=== PATIENT | female | born 1970 | race African-American/Black ===

== ENCOUNTER 2023-08-04 14:22 | Outpatient (CLI) | payer OTHER, SELFPAY ==
[2023-08-04 14:57] LABS: Basophils Percent Auto 0.5 % (0.2-1.2); Eosinophils Absolute Auto 0.3 K/mm3 (0-0.3); Eosinophils Percent Auto 4.8 % (0-4.4); Hematocrit 37.6 % (37.0-47.0); Immature Granulocyte Absolute 0.02 K/mm3 (0.00-0.031); Immature Granulocyte Percent A 0.4 % (0-0.5); Lymphocytes Absolute Auto 1.92 K/mm3 (0.9-3.2); Lymphocytes Percent Auto 34.1 % (18.3-44.2); Mean Corpuscular HGB Conc 31.9 g/dl (32-36); Mean Corpuscular Hemoglobin 27.8 pg (26-34); Mean Corpuscular Volume 87.2 fl (80-100); Mean Platelet Volume 9.1 fl (7.4-10.4); Monocytes Absolute Auto 0.5 K/mm3 (0.1-0.6); Monocytes Percent Auto 9.2 % (2.6-8.5); Neutrophils Absolute Auto 2.9 K/mm3 (1.3-6.7); Platelet Count Result 252 k/mm3 (150-375); Red Blood Count 4.31 M/mm3 (4.2-5.4); Red Cell Distribution Width 13.6 % (11.5-14.5); White Blood Count 5.6 K/mm3 (4.5-10.0)
[2023-08-04 15:10] LABS: Alanine Aminotransferase 18 U/L (6-35); Albumin Level 4.4 g/dL (3.5-5.1); Alkaline Phosphatase 68 U/L (38-126); Anion Gap 3 mmol/L (4-12); Aspartate Amino Transferase 21 U/L (14-36); Bilirubin,Total 0.4 mg/dL (0.2-1.3); Blood Urea Nitrogen 10 mg/dL (7-17); Calcium 9.4 mg/dL (8.4-10.2); Carbon Dioxide 28 mmol/L (22-30); Chloride 104 mmol/L (98-107); Estimated Glomerular Filt Rate > 60; Glucose 86 mg/dL (65-110); Potassium 3.6 mmol/L (3.4-5.0); Sodium 135 mmol/L (137-145)
== END 2023-08-04 14:23 | disposition home or self-care (01) ==
LOC: ANHSURGERY 14:28
PROVIDERS: Visit Provider Student in an Organized Health Care Education/Training Program
DX: Z01.818 Encounter for other preprocedural examination (principal); N85.2 Hypertrophy of uterus
CPT/HCPCS: 36415; 80053; 85025; 86850; 86900; 86901

== ENCOUNTER 2023-08-06 11:19 | Inpatient (IN) | payer OTHER, SELFPAY ==
[2023-07-28 14:27] VITALS: BMI 33.6
--- NOTE | 2023-07-28 14:32 | PC.NURSE ---
Report to the Outpatient Waiting Room, entrance under the green pavilion located off [facility], at time 10:00 on date 08/06/23. Planned Procedure Time: 12:00. Time changes happen often and if your time is changed the preop area will call you the afternoon before. - You and your visitor will be asked to self-screen and do not enter if you have any COVID symptoms. - A mask is optional within the hospital at this time. Patients may have clear liquids (water, carbonated beverages, clear teas, apple juice) until 3 hours prior to surgery (9:00) with a maximum of 20 ounces. - No food from midnight until time of surgery Take the following medications with a SIP of water the morning of surgery: NONE DO NOT STOP ANY OF YOUR OTHER PRESCRIPTION MEDICATIONS PRIOR TO SURGERY ?EXCEPT THE FOLLOWING Medications to discontinue per physician: ADVIL Date to take last dose: PER DR. DORMAN Please no make-up, nail jordanian, hairspray, perfume, deodorant, or body powder the day of surgery. No jewelry (including any body piercings) or valuables the day of surgery, leave them at home. Please take a shower or bath the night before, or the morning of, surgery with an antibacterial soap. Wear comfortable, loose fitting clothing. - Jewelry must be removed prior to entering the operating room. Rings and piercings that are not removed may be cut off. - The hospital will not accept responsibility for valuables. - Please leave all valuables, including medications, at home the day of surgery. If you are going home after surgery, a licensed steam train driver must drive you home. - NO public transportation without another adult if you receive anesthesia. - We recommend that an adult stay with you for 24 hours following discharge. - We also recommend that you do not drive, make important decision, drink alcoholic beverages, or take any drugs that were not prescribed by your health care provider for at least 24 hours after your discharge time. Follow any additional instructions given to you from your surgeon. If you or anyone in your household have experienced Covid symptoms in the past week, please notify your surgeon or the nurse liaison at the phone number below for possible testing. Telephone instructions given to PT Stephany CONRAD and asked if any additional questions and then verbalized understanding. Patient advised to call surgeon office or pre surgery nurse liaison [phone] if any additional questions.
--- NOTE | 2023-08-05 16:08 | PM.IMHP ---
H&P: HPI History of Present Illness Date/Time: 08/05/23 16:08 Chief Complaint: abnormal uterine bleeding uterine fibroid pelvic pain Narrative: ?52-year-old female who presents for management of abnormal uterine bleeding and pelvic pain.? Patient was recently seen for the previously mentioned symptoms.? Pelvic imaging was ordered to rule out structural causes.? Pelvic ultrasound revealed enlarged uterus with multiple uterine fibroids. Pt desires definitive management via hysterectomy Review of Systems Cardiovascular: Cardiovascular: Denies chest pain, Denies leg edema, Denies palpitations, Denies dyspnea and Denies dyspnea on exertion Respiratory: Respiratory: Denies cough, Denies dyspnea and Denies dyspnea on exertion Gastrointestinal: Gastrointestinal: Denies abdominal pain, Denies constipation, Denies diarrhea, Denies nausea and Denies vomiting Genitourinary: Genitourinary: Denies hematuria, Denies urinary frequency, Denies dysuria, Denies pelvic pain, Denies urinary incontinence and Denies vaginal discharge Neurologic: Reports system reviewed and no additional complaints, except as documented Psychiatric: Psychiatric: Reports no additional psychiatric complaints Endocrine: Endocrine: Denies palpitations PMFSH Past Medical History Medical History Screening mammogram for breast cancer Surgical History Surgical History H/O knee surgery History of delivery x 3 Social History Social History Smoking status: Never smoker Alcohol intake: current Drinks per week: 7 Substance use: never Substance use type: does not use Do You Feel Safe in your Home?: Yes Lack of Transportation: No Lack of Food: Never True Current Housing: I Have Housing Concerned About Future Housing: No Difficulty Paying Gas/Electric Bills: No Difficulty Paying for Meds: No Currently Unemployed: No Education: High School Diploma/GED Living arrangements: alone Occupation/Education: occupation Gender identity (if verbalized by the patient): Female Spiritual care concerns: No Meds Home Medications and Allergies Home Medications Medication Instructions Recorded Confirmed Type ibuprofen 200 mg-phenylephrine HCl 1 tablet PO Q4-6H PRN Pain 07/28/23 07/28/23 History 10 mg tablet (Advil Sinus Congestion-Pain) oxymetazoline 0.05 % nasal spray 2 spray intranasal Q12H PRN Sinus 07/28/23 07/28/23 History (Afrin (oxymetazoline)) Symptoms Allergies Allergy/AdvReac Type Severity Reaction Status Date / Time No Known Allergies Allergy Verified 07/28/23 14:26 Exam Const: General: no acute distress Eyes: EOM: EOMs intact bilaterally Neck: Neck: supple Thyroid: thyroid normal Chest: Breast/axilla inspection: normal inspection of the breasts Breast/axilla palpation: normal palpation of the breasts, normal palpation of the axillae and no axillary lymphadenopathy Resp: Effort & Inspection: normal respiratory effort Auscultation: clear to auscultation bilaterally Cardio: Rate: regular rate Rhythm: regular rhythm GI: Inspection: non-distended GI Palp: Yes Soft to palpation, No Tenderness to palpation present (GI) and No Guarding due to palpation present (GI) Auscultation: normal bowel sounds : General: No bladder normal to palpation External Female Exam: normal external appearance Speculum Exam - Vagina: normal vaginal discharge and No vaginal bleeding Speculum Exam - Cervix: nontender Bimanual exam- vagina & uterus: No bladder normal to palpation and No Cervical tenderness present OB/external & speculum: No vaginal bleeding Skin: General skin exam: normal color and no rashes or lesions noted Neuro: Cognition (Neuro): normal cognition Speech: normal speech Extrem: General: normal to inspection and no edema Psych
[2023-08-06] VITALS (10 sets, daily range): BP systolic 106–171; BP diastolic 63–95; PULSE 72–86; RESP 12–17; TEMP 36.2–36.9; O2SAT 94–100
[2023-08-06] MEDS: LACTATED RINGERS 1,000 ML 30 ML IV CONT ×2 (11:26→14:57)
--- NOTE | 2023-08-06 11:41 | WPDHPUPDATE1 ---
History and Physical Update Update Date/Time: 08/06/23 11:41 52 yo female who presents for CAMILA/BS History and Physical has been reviewed, including an updated exam of the patient. There are NO changes in the patient's condition. Risks, benefits, and alternatives have been discussed and questions answered. Patient agrees to proceed with procedure.
[2023-08-06] MEDS: ACETAMINOPHEN 500 MG TABLET 1000 MG PO (11:50)
[2023-08-06] MEDS: KETOROLAC 15 MG/ML VIAL (*BKC) IV PUSH (11:53)
--- NOTE | 2023-08-06 11:59 | P.PNAN_ITS ---
Anes - Initial Pre Proc Eval Procedure: Operation Date: 08/06/23 12:00 Proposed Procedures p Total Abdominal Hysterectomy with Bilateral Salpingectomy - Osman Preston MD Date/Time: 08/06/23 11:59 Surgeon: Osman Preston MD Pre Op Diagnosis: Uterine Hypertrophy Patient Data Age: 52 Gender: F Height: 1.6 m Weight: 93.9 kg Last Vital Signs Temp 97.5 F L 08/06/23 11:49 Pulse 81 08/06/23 11:49 Resp 16 08/06/23 11:49 BP 171/95 H 08/06/23 11:49 Pulse Ox 99 08/06/23 11:49 O2 Del Method Room Air 08/06/23 11:49 Allergies Allergy/AdvReac Type Severity Reaction Status Date / Time No Known Allergies Allergy Verified 08/06/23 10:22 Home Medications Medication Instructions Recorded Confirmed Type ibuprofen 200 mg-phenylephrine HCl 1 tablet PO Q4-6H PRN Pain 07/28/23 08/06/23 History 10 mg tablet (Advil Sinus Congestion-Pain) oxymetazoline 0.05 % nasal spray 2 spray intranasal Q12H PRN Sinus 07/28/23 08/06/23 History (Afrin (oxymetazoline)) Symptoms Patient hx anesthesia problems: none Family hx anesthesia problems: none Results Review: All pre-operative results and documents have been reviewed as part of the pre- operative evaluation. [facility] Past Medical History Medical History Screening mammogram for breast cancer Surgical History Surgical History H/O knee surgery History of delivery x 3 Social History Social History Smoking status: Never smoker Alcohol intake: current Drinks per week: 7 Substance use: never Substance use type: does not use Do You Feel Safe in your Home?: Yes Lack of Transportation: No Lack of Food: Never True Current Housing: I Have Housing Concerned About Future Housing: No Difficulty Paying Gas/Electric Bills: No Difficulty Paying for Meds: No Currently Unemployed: No Education: High School Diploma/GED Living arrangements: alone Occupation/Education: occupation Gender identity (if verbalized by the patient): Female Spiritual care concerns: No Anes - Eval Final PreProcedure Day of Procedure 08/06/23 11:59 Patient weight: obese Heart: regular rate and rhythm Lungs: clear to auscultation Airway: Mallampati scale class II Neurological: alert and oriented Last oral intake: >/= 8 hours ASA classification: II Emergent: no Anesthetic plan: proceed Anesthesia type and monitoring: general ETT and standard monitoring Results Review: All pre-operative results and documents have been reviewed as part of the pre- operative evaluation. Informed Consent: The patient's anesthetic plan and its attendant risks and benefits were discussed with the patient/family/POA. Questions were solicited and answers provided to the satisfaction of the patient/family/POA.
[2023-08-06] MEDS: ceFAZolin 2 GM/D5W 50 ML 2 GM/50 ML BAG IVPB (12:06)
--- NOTE | 2023-08-06 14:38 | W.PM.PROC2 ---
Procedure Note - Detailed Date of Procedure 08/06/23 Pre-op Diagnosis uterine fibroid abnormal uterine bleeding pelvic pain Post-op Diagnosis Same Procedure Performed Abdominal supracervical hysterectomy with bilateral salpingectomy Surgeon Osman Preston MD Anesthesia General Indications pelvic pain uterine fibroids abnormal uterine bleeding Findings Enlarged uterus, multiple uterine fibroids, normal appearing fallopian tubes and ovaries bilaterally bladder adherent to the lower uterine segment due to previous c-sections. Description of Procedure After informed consent was confirmed the patient was taken to the operating room where general anesthesia was obtained without difficulty. She was prepped and draped in the normal sterile fashion in the dorsal lithotomy position in padded Tee stirrups with attention paid to supporting the lower back and lower extremities.? Position was adjusted for appropriate support. A transurethral Whalen catheter was placed. A midline incision was made from the pubic symphysis extending cephalad to 3 cm above the umbilicus.? The subcutaneous layer and fascia were incised and the abdominal cavity entered without incident.?The below operative findings were noted. The Bookwalter retractor was set up in standard fashion, with attention to avoid the psoas muscles bilaterally.? The bowel was packed into the upper abdomen with moist laparotomy sponges.? Bilateral fallopian tubes were identified and followed out to the fimbriae. The fallopian tubes were transection along the inferior mesosalpinx to the uterine body using the Ligasure device. The bilateral round ligaments were identified.? The right round ligament was divided and the para-rectal space developed. The right ovary was and the suspensory ligament of the ovary as well as its vessels were ligated with the Ligasure device. Similar procedure was performed on the left side of the uterus. Hemostasis was confirmed.? The bladder was noted to be adherent to the lower uterine segment due to history of sections. Gentle dissection was performed and the bladder was taken down sharply.?Visualization of the deep pelvis was limited to due the size of the uterus and multiple fibroids obstructed normal anatomy. Decision was made to perform myomectomy to help restore normal anatomy and better visualization. A linear incisoin was made vertically along the uterine serosa using Bovie cautery. The subserosal fibroid was identified. The fibroid was bluntly dissected from the uterine body. This procedure was performed 4 separate times to remove 4 individual fibroids from the uterine body. The uterine incision was closed with 0-vicryl in a running fashion to secure hemostasis in the surgical field. After better visualization of the deep pelvis was obtained, the right uterine artery was ligated using the Ligasure device.? A similar procedure was performed on the contralateral side.? Given the enlarged uterus and multiple fibroid, the cervix had been elongated. Due to adhesive disease from the bladder and limited access to the deep pelvis, decision was made to perform a supracervical hysterectomy. The cervix was clamped at the level of the isthmus. The uterus was amputated from the cervical stump. The cervical stump was cauterized with Bovie cautery. Good hemostasis was observed, Hemaderm powder was placed on the surgical field.? The abdomen and pelvis were copiously irrigated and found to be hemostatic. All sponges and retractor instruments were removed from the abdomen. ? We then proceeded with closure.? The fascia was closed with a # 0 looped PDS in a running mass-closure fashion.? The subcutaneous layer was irrigated and made hemostatic as needed with the Bovie.? The deep dermal layer was closed with interrupted 3-0 Vicryl and the skin closed with jah. The patient tolerated the procedure well. Sponge, needle and instrument counts were correct x 2 and the patient was taken t
--- NOTE | 2023-08-06 16:20 | PC.NURSE ---
This patient, Domitila Cortes, was received from PACU on 08/06/23 at 1620. Patient/family oriented to unit policies and routines.
[2023-08-06] MEDS: LACTATED RINGERS 1,000 ML 125 ML IV CONT (16:53)
[2023-08-06] MEDS: SENNA/DOCUSATE SODIUM TABLET 2 TAB PO (20:53)
[2023-08-06] MEDS: SIMETHICONE 80 MG TAB.CHEW PO (20:54)
[2023-08-06] MEDS: KETOROLAC 30 MG/ML VIAL (*BKC) IV PUSH (20:54)
[2023-08-07 00:31] VITALS: BP 121/69; PULSE 91; RESP 16; TEMP 36.8; O2SAT 98
[2023-08-07] MEDS: SIMETHICONE 80 MG TAB.CHEW PO ×3 (00:41→17:15)
[2023-08-07] MEDS: KETOROLAC 30 MG/ML VIAL (*BKC) IV PUSH (05:22)
[2023-08-07 06:10] LABS: Basophils Percent Auto 0.1 % (0.2-1.2); Hemoglobin 10.2 g/dL (12.0-15.0); Immature Granulocyte Absolute 0.04 K/mm3 (0.00-0.031); Immature Granulocyte Percent A 0.3 % (0-0.5); Lymphocytes Absolute Auto 1.34 K/mm3 (0.9-3.2); Lymphocytes Percent Auto 10.8 % (18.3-44.2); Mean Corpuscular HGB Conc 31.9 g/dl (32-36); Mean Corpuscular Hemoglobin 27.9 pg (26-34); Mean Corpuscular Volume 87.7 fl (80-100); Mean Platelet Volume 10.2 fl (7.4-10.4); Neutrophils Percent Auto 80.8 % (45.5-73.1); Platelet Count Result 231 k/mm3 (150-375); Red Blood Count 3.65 M/mm3 (4.2-5.4); Red Cell Distribution Width 13.7 % (11.5-14.5); White Blood Count 12.4 K/mm3 (4.5-10.0)
[2023-08-07 06:20] LABS: Anion Gap 5 mmol/L (4-12); Blood Urea Nitrogen 8 mg/dL (7-17); Calcium 8.8 mg/dL (8.4-10.2); Carbon Dioxide 26 mmol/L (22-30); Chloride 103 mmol/L (98-107); Estimated CRCL calculation 80 ml/min; Estimated Glomerular Filt Rate > 60; Glucose 115 mg/dL (65-110); Potassium 3.3 mmol/L (3.4-5.0); Sodium 134 mmol/L (137-145)
--- NOTE | 2023-08-07 07:25 | WPDANESPN ---
Anes - Prog Note Post-Op Date/Time: 08/07/23 07:25 Cardiovascular status: normal Respiratory status: normal Airway patency: baseline Mental status: baseline Post-Op hydration status: normal Vital Signs: Last Vital Signs Temp 98.2 F 08/07/23 00:31 Pulse 91 08/07/23 00:31 Resp 16 08/07/23 00:31 BP 121/69 08/07/23 00:31 Pulse Ox 98 08/07/23 00:31 O2 Del Method Room Air 08/06/23 16:00 O2 Flow Rate 10 08/06/23 15:00 Pain Score (VAS): 0/10 I/O: Intake & Output 08/06/23 08/06/23 08/07/23 15:59 23:59 07:59 Intake Total 0 0 1980 Output Total 1100 1700 Balance 0 -1100 280 Laboratory Tests 08/07/23 05:44 08/07/23 05:44 08/07/23 05:44 WBC 12.4 H RBC 3.65 L Hgb 10.2 L Hct 32.0 L MCV 87.7 MCH 27.9 MCHC 31.9 L RDW 13.7 Plt Count 231 MPV 10.2 Immature Gran % (Auto) 0.3 Neut % (Auto) 80.8 H Lymph % (Auto) 10.8 L [place] % (Auto) 8.0 Eos % (Auto) 0.0 Baso % (Auto) 0.1 L Lymph # (Auto) 1.34 [place] # (Auto) 1.0 H Eos # (Auto) 0.0 Baso # (Auto) 0.0 Abs Immat Gran (auto) 0.04 H Absolute Neuts (auto) 10.0 H Absolute Nucleated RBC 0.000 Nucleated RBC % 0.0 Sodium 134 L Potassium 3.3 L Chloride 103 Carbon Dioxide 26 Anion Gap 5 BUN 8 Creatinine 0.80 Estim Creat Clear Calc 80 Estimated GFR > 60 Glucose 115 H Calcium 8.8 Post-procedural complaints: none Patient Feedback: Patient satisfied with anesthetic care.
--- NOTE | 2023-08-07 08:08 | PM.GYNPNOP ---
STAPLE LASTER - A/P Assessment and plan (1) Uterine fibroid: Code(s): D25.9 - Leiomyoma of uterus, unspecified Status: Acute Plan 52-year-old female postop day 1. From supracervical CAMILA/ BS Patient resting comfortably in bed Midline vertical incision closed with jah. Incision dry and covered with bandage Whalen catheter removed. Normal urine output overnight H&H stable this morning Patient is tolerating p.o. without nausea and vomiting Encouraged ambulation today Will continue to monitor pain control Anticipate discharge home tomorrow morning Postoperative Procedures: Procedures Operation Date: 08/06/23 12:00 Actual Procedure Side Surgeon p supracervical Hysterectomy with Bilateral Salpingectomy Bilateral Osman Preston MD Time Spent With Patient Time: Total time spent is greater than 50% in coordination of care (as documented) at patient's floor/unit and/or counseling patient: Time with patient: less than 15 minutes STAPLE LASTER- PN:Subj Post-Op Subjective Date/time seen: 08/07/23 08:08 Interval history: 52-year-old female postop day 1. From supracervical CAMILA / BS for uterine fibroids. Patient resting comfortably in bed. Patient reports adequate pain control. Patient denies any bleeding. Patient is tolerating p.o. without nausea or vomiting. Whalen catheters removed. Patient is voiding spontaneously. Review of Systems Review of Systems: All systems reviewed & are unremarkable except as noted in HPI and below Exam Const: General: cooperative, comfortable and no acute distress Resp: Effort & Inspection: normal respiratory effort and able to speak in complete sentences Cardio: Rate: regular rate GI: Inspection: incision ( Midline vertical incision closed with jah, incision dry) GI Palp: Yes abdominal tenderness and Yes Soft to palpation Psych: Appearance: grossly normal Mental Status: mental status grossly normal STAPLE LASTER - PN: Obj Data Vital Signs Vital Signs: Vital Signs - 24 hr 08/06/23 11:49 08/06/23 14:33 08/06/23 14:45 Temperature 97.5 F L 97.5 F L Pulse Rate 81 72 73 Respiratory Rate 16 17 12 Blood Pressure 171/95 H 108/63 117/70 Pulse Oximetry 99 100 100 Oxygen Delivery Room Air Simple Face Mask Simple Face Mask Oxygen Flow Rate 10 10 08/06/23 15:00 08/06/23 15:15 08/06/23 15:30 Temperature Pulse Rate 72 73 76 Respiratory Rate 12 12 12 Blood Pressure 117/73 112/70 108/79 Pulse Oximetry 100 98 98 Oxygen Delivery Simple Face Mask Room Air Room Air Oxygen Flow Rate 10 08/06/23 15:45 08/06/23 16:00 08/06/23 16:30 Temperature 97.2 F L Pulse Rate 79 79 82 Respiratory Rate 14 13 16 Blood Pressure 106/73 112/73 108/66 Pulse Oximetry 100 94 94 Oxygen Delivery Room Air Room Air Oxygen Flow Rate 08/06/23 20:52 08/07/23 00:31 Temperature 98.4 F 98.2 F Pulse Rate 86 91 Respiratory Rate 16 16 Blood Pressure 111/74 121/69 Pulse Oximetry 97 98 Oxygen Delivery Oxygen Flow Rate Intake/Output Intake/Output: Intake & Output 08/04/23 08/05/23 08/06/23 08/07/23 23:59 23:59 23:59 23:59 Intake Total 0 1980 Output Total 1100 1700 Balance -1100 280 Meds/Results Medications: Active Medications Generic Name Dose Route Start Last Admin Trade Name Freq PRN Reason Stop Dose Admin Lactated Ringer's 1,000 mls @ 125 mls/hr 08/06/23 16:14 08/07/23 00:46 Lr - Lactated Ringers Iv IV CONT Not Given .Q8H ERMA Ibuprofen 600 mg 08/06/23 16:14 Ibuprofen 600 Mg Tablet PO Q6H PRN Cramping Ketorolac Tromethamine 30 mg 08/06/23 16:14 08/07/23 05:22 Ketorolac 30 Mg/Ml Vial (*Bkc) IV PUSH 08/11/23 16:13 30 mg Q6H PRN Administration Pain Rated 4-6 Ondansetron HCl 4 mg 08/06/23 16:14 Ondansetron Inj 4 Mg/2 Ml Vial IV PUSH Q6H PRN Nausea Oxycodone/Acetaminophen 1 tab 08/06/23 16:14 Oxycodone/Acetaminophen (*Crx) 10-325 Mg Tablet PO Q4H PRN Pain Rated 7-10 Oxymetazolin
[2023-08-07 08:25] VITALS: BP 110/66; PULSE 77; RESP 18; TEMP 36.6; O2SAT 98
[2023-08-07] MEDS: oxyCODONE/ACETAMINOPHEN (*CRX) 10-325 MG TABLET 1 TAB PO ×2 (09:15→22:36)
[2023-08-07] MEDS: IBUPROFEN 600 MG TABLET PO (11:28)
[2023-08-07 20:58] VITALS: BP 96/59; PULSE 70; RESP 18; TEMP 36.6; O2SAT 97
[2023-08-08 09:00] VITALS: BP 129/78; PULSE 81; RESP 16; TEMP 37; O2SAT 96
[2023-08-08] MEDS: IBUPROFEN 600 MG TABLET PO (09:19)
[2023-08-08] MEDS: SIMETHICONE 80 MG TAB.CHEW PO (09:19)
--- NOTE | 2023-08-08 09:41 | PM.DS ---
DS: Admitting Diagnosis Discharge Date 08/08/23 Admitting Diagnosis uterine fibroid pelvic pain abnormal uterine bleeding DS: Discharge Diagnosis Discharge Diagnosis (1) Uterine fibroid: Code(s): D25.9 - Leiomyoma of uterus, unspecified Status: Acute (2) Abnormal uterine bleeding (AUB): Code(s): N93.9 - Abnormal uterine and vaginal bleeding, unspecified Status: Acute DS: Summary Hospital Course Hospital Course: 52 yo female who underwent supracervical CAMILA/BS for uterine fibroids. Patient's posoperative course was uncomplicated. Her pain was well controlled with PO medications. She was ambulating. She had passed gas. She denies any nausea or vomiting. pt is voiding without difficulty. Patient was discharged home on POD #2 Status at Discharge Functional status at discharge: independent ambulation Overall status at discharge: patient is progressing back to baseline Time Spent with Patient Time attestation: Total time spent providing and/or coordinating discharge services: Time spent: Less than 30 minutes Exam Const: General: comfortable and no acute distress Limitations: no limitations Resp: Effort & Inspection: normal respiratory effort Auscultation: clear to auscultation bilaterally Cardio: Rate: regular rate Rhythm: regular rhythm GI: Inspection: non-distended and incision (midline vertical incision. closed with jah) GI Palp: Yes Soft to palpation, Yes Tenderness to palpation present (GI) (milder tenderness to deep palpation) and No Guarding due to palpation present (GI) Auscultation: normal bowel sounds Other: incisions C/D/I covered with dermabond Urinary Catheter: Urinary Catheter: urine clear Skin: General skin exam: normal color Extrem: General: normal to inspection Psych: Mental Status: mental status grossly normal Affect: normal affect DS: Data Data Completed and Pending Pending studies at discharge: Pending at discharge 08/06/23 13:09 Surgical [PTH] Routine Surgical [PTH] Routine Discharge Plan Discharge Discharging Clinician: Osman Preston Patient Disposition: Home, Self-Care Activity: as tolerated and pelvic rest Diet: regular Patient Instructions: Antibiotic Form, Hysterectomy (DC) Stand Alone Forms: General Discharge Information Follow-up/Referrals: Osman Preston MD [Physician] - 1 Week Discharge Medications: New oxycodone-acetaminophen 5-325 mg tablet 1 tablet PO Q6H PRN (Reason: pain) Qty: 28 0RF ibuprofen 600 mg tablet 600 mg PO Q6H PRN (Reason: pain) Qty: 30 0RF Continued oxymetazoline [Afrin (oxymetazoline)] 0.05 % [place],Non-Aerosol 2 spray INTRANASAL Q12H PRN (Reason: Sinus Symptoms) Advil Sinus Congestion-Pain 200-10 mg Tablet 1 tablet PO Q4-6H PRN (Reason: Pain) Date of admission: 08/06/23 11:19 Primary Care Provider: UNKNOWN,DOCTOR Admitting Provider: Osman Preston Attending physician on admission: Osman Preston Condition: Stable
== END 2023-08-08 12:20 | disposition home or self-care (01) | DRG 743 ==
LOC: ANHOB2 16:26
PROVIDERS: Admitting Provider Student in an Organized Health Care Education/Training Program; Visit Provider Student in an Organized Health Care Education/Training Program
PROC: 0UT94ZZ Resection of Uterus, Percutaneous Endoscopic Approach (ICD-10-PCS; principal; 2023-08-06 12:00)
DX: D25.9 Leiomyoma of uterus, unspecified (principal); N93.9 Abnormal uterine and vaginal bleeding, unspecified
CPT/HCPCS: 36415; 80048; 80053; 85025; 86850; 86900; 86901; 88307; A9270; J0330; J0690; J1100; J1170; J1885; J2250; J2371; J2405; J2704; J3010; J7120

== ENCOUNTER 2023-09-18 15:25 | Emergency (ER) | payer OTHER, SELFPAY ==
[2023-09-18] VITALS (7 sets, daily range): BP systolic 116–149; BP diastolic 71–94; PULSE 61–86; RESP 12–20; TEMP 36.6; O2SAT 96–100
--- NOTE | 2023-09-18 17:58 | ED.ABDPAIN ---
HPI - Abdominal Pain General Chief Complaint: Abdominal Pain Stated Complaint: abd pain Time Seen by Provider: 09/18/23 17:57 History of Present Illness HPI narrative: Patient is a 53 year old female with history of prior uterine fibroids, status post hysterectomy on August 06, 2023 here today with abdominal pain and vaginal discharge. Patient states that she has had intermittent abdominal pains since her surgery on August [address] Preston. For the last 2 weeks she has had increased pain and feels as though she is having cramps like she is on her menstrual cycle. She has had some mild clear non pruritic vaginal discharge over the last 2 weeks as well, contacted her [facility] clinic who started her on Flagyl suppositories 4 days ago. She has taken 4 tablets, is due for last dose tomorrow. She notes that today she had increased pain over the left lower side of her incision area. Denies any discharge or open wound that her incision site. She also started noticing some blood tinge in her vaginal discharge which made her concerned and prompted her evaluation here in the department. She denies any fever, chills, nausea, vomiting. She has had normal bowel movements. She otherwise feels generally well. Related Data Home Medications Medication Instructions Recorded Confirmed oxymetazoline 0.05 % nasal spray 2 spray intranasal Q12H PRN Sinus 07/28/23 08/20/23 (Afrin (oxymetazoline)) Symptoms Allergies Allergy/AdvReac Type Severity Reaction Status Date / Time No Known Allergies Allergy Verified 08/20/23 10:03 Review of Systems Review of Systems: All systems reviewed & are unremarkable except as noted in HPI and below PMFSH Past Medical History Medical History (Updated 09/18/23 @ 22:03 by Deann Bob MD) Screening mammogram for breast cancer Surgical History Surgical History (Updated 08/20/23 @ 10:06 by Diana Kaufman CMA) H/O knee surgery History of delivery x 3 History of hysterectomy Social History Social History Smoking status: Never smoker Alcohol intake: current Drinks per week: 7 Substance use: never Substance use type: does not use Do You Feel Safe in your Home?: Yes Lack of Transportation: No Lack of Food: Never True Current Housing: I Have Housing Concerned About Future Housing: No Difficulty Paying Gas/Electric Bills: No Difficulty Paying for Meds: No Currently Unemployed: No Education: High School Diploma/GED Living arrangements: alone Occupation/Education: occupation Gender identity (if verbalized by the patient): Female Spiritual care concerns: No Exam Narrative: GENERAL: Well-appearing, well-nourished, and in no acute distress. HEAD: Normocephalic, atraumatic. EYES: PERRLA and EOMI. ENT: Nares clear. Mucous membranes moist. NECK: Supple. CHEST: Clear to auscultation. No respiratory distress. HEART: Regular rate and rhythm. Normal peripheral pulses. ABDOMEN: Soft, mild left lower quadrant tenderness without rebound or guarding., nondistended. EXTREMITIES: Normal range of motion. No edema. SKIN: Warm, dry, no rash. NEURO: No focal deficits. Alert and oriented x3. PSYCH: Normal mood and affect. Course Course Emergency Course: Chart review performed. Patient here with abdominal pain. Reportedly had hysterectomy in July, has had intermittent pain since that time, pain with urination. Triage vitals normal. CBC grossly normal, electrolytes grossly normal, UA negative for UTI. Patient seen evaluated, nontoxic appearing, reassuring abdominal exam. Low suspicion for something such as a intra-abdominal abscess postoperatively given the fact that she is 6 weeks out from this procedure and she generally feels quite well. Discussed plan for gonorrhea, chlamydia screening as well as a pelvic exam and plan for sending a bacterial vaginosis swab. Patient agreeable to workup and plan. We did
[2023-09-18 18:35] LABS: Basophils Percent Auto 0.3 % (0.2-1.2); Eosinophils Absolute Auto 0.2 K/mm3 (0-0.3); Eosinophils Percent Auto 2.6 % (0-4.4); Hematocrit 36.8 % (37.0-47.0); Hemoglobin 11.7 g/dL (12.0-15.0); Immature Granulocyte Absolute 0.02 K/mm3 (0.00-0.031); Immature Granulocyte Percent A 0.3 % (0-0.5); Lymphocytes Absolute Auto 2.29 K/mm3 (0.9-3.2); Lymphocytes Percent Auto 32.9 % (18.3-44.2); Mean Corpuscular HGB Conc 31.8 g/dl (32-36); Mean Corpuscular Hemoglobin 27.2 pg (26-34); Mean Corpuscular Volume 85.6 fl (80-100); Mean Platelet Volume 9.4 fl (7.4-10.4); Monocytes Absolute Auto 0.6 K/mm3 (0.1-0.6); Monocytes Percent Auto 7.9 % (2.6-8.5); Neutrophils Absolute Auto 3.9 K/mm3 (1.3-6.7); Platelet Count Result 328 k/mm3 (150-375)
[2023-09-18 18:46] LABS: Alanine Aminotransferase 12 U/L (6-35); Albumin Level 4.8 g/dL (3.5-5.1); Alkaline Phosphatase 83 U/L (38-126); Anion Gap 9 mmol/L (4-12); Aspartate Amino Transferase 22 U/L (14-36); Bilirubin,Total 0.6 mg/dL (0.2-1.3); Blood Urea Nitrogen 7 mg/dL (7-17); Calcium 9.6 mg/dL (8.4-10.2); Carbon Dioxide 29 mmol/L (22-30); Chloride 102 mmol/L (98-107); Estimated CRCL calculation 75 ml/min; Estimated Glomerular Filt Rate > 60; Glucose 86 mg/dL (65-110); Lipase 35 U/L (23-300); Potassium 3.3 mmol/L (3.4-5.0); Sodium 140 mmol/L (137-145)
[2023-09-18 19:07] LABS: Appearance Urine Clear (Clear); Bacteria Urine None Seen /hpf; Bilirubin Urine Negative (Negative); Blood Urine Trace (Negative); Color Urine Yellow (Yellow); Glucose Urine UA Negative (Negative); Ketones Urine Negative (Negative); Leukocyte Esterase Ur Trace LEU/UL (Negative); Need Manual Microscopic Reviewed; Nitrate Urine Negative (Negative); Non Pathogenic Casts 0-2; Protein Urine Negative (Negative); RBC Urine 0-2 /hpf (0-2); Squamous Epithelial Cell Urine None Seen /hpf (Few); Urobilinogen Urine 0.2 mg/dL (<2.0); WBC Urine 0-5 /hpf (0-3); pH Urine 7.5 (5.0-9.0)
[2023-09-18 19:09] LABS: Specific Grav Ur 1.003 (1.001-1.035)
[2023-09-18 19:10] LABS: Add Urine Microscopic? YES
--- NOTE | 2023-09-18 19:29 | PC.NURSE ---
this rn assumed care of patient. this rn took patient report from [facility].
--- NOTE | 2023-09-18 21:00 | PC.NURSE ---
this rn along with edp dr. huizar went to do a pelvic exam. pt was previously seen ambulating and exiting towards the exit of the ed with a steady unassisted gait. pt was not in room, bathroom, or hallway.
[2023-09-18 21:45] LABS: Trichomonas Vag PCR NOT DETECTED (NOT DETECTE)
[2023-09-18 22:07] LABS: Chlamydia trachomatis NOT DETECTED (NOT DETECTE); Neisseria gonorrhoeae PCR NOT DETECTED (NOT DETECTE)
== END 2023-09-18 21:09 | disposition left against medical advice (07) ==
PROVIDERS: Emergency Provider Student in an Organized Health Care Education/Training Program
DX: R10.9 Unspecified abdominal pain (principal); N89.8 Other specified noninflammatory disorders of vagina
CPT/HCPCS: 36415; 80053; 81001; 83690; 85025; 87491; 87591; 87661; 99284

== ENCOUNTER 2024-01-02 21:40 | Emergency (ER) | payer OTHER, SELFPAY ==
--- NOTE | ~2024-01-02 | XR_ITS ---
XR shoulder LT min 2V DATE: 01/02/2024 22:01 INDICATION: Anterior left shoulder pain TECHNIQUE: 4 views COMPARISON: None FINDINGS: No fracture or dislocation, periosteal reaction or bone destruction or abnormal soft tissue calcification of the left shoulder. IMPRESSION: Negative Reviewed, dictated and finalized at location A. IMPRESSION: Negative
[2024-01-02 21:42] VITALS: BP 158/92; PULSE 66; RESP 20; TEMP 36.4; O2SAT 97
[2024-01-03 01:11] VITALS: BP 151/94; PULSE 64; RESP 18; O2SAT 99
--- NOTE | 2024-01-03 01:36 | ED.GENADULT ---
HPI - General Adult General Chief complaint: Extremity Injury, Upper Stated complaint: left shoulder pain Time Seen by Provider: 01/03/24 01:25 History of Present Illness HPI narrative: Patient is a 53-year-old female who presents emergency department with chief complaint of left shoulder pain. Patient reports she was at work at [employer] felt a pop in her left shoulder and reports pain that shot across her collarbone. The patient reports she had a little bit of tingling in her hand afterwards of reports she has full range of motion is just exquisitely uncomfortable. The patient reports no prior injury to the shoulder Related Data Home Medications Medication Instructions Recorded Confirmed oxymetazoline 0.05 % nasal spray 2 spray intranasal Q12H PRN Sinus 07/28/23 09/24/23 (Afrin (oxymetazoline)) Symptoms Allergies Allergy/AdvReac Type Severity Reaction Status Date / Time No Known Allergies Allergy Verified 01/02/24 21:45 Review of Systems Review of Systems: A 10 system review of systems was completed on the patient and is negative except for what is stated in the HPI. Nursing and ancillary documentation was reviewed. PMFSH Past Medical History Medical History Screening mammogram for breast cancer Surgical History Surgical History H/O knee surgery History of delivery x 3 History of hysterectomy Social History Social History Smoking status: Never smoker Alcohol intake: current Drinks per week: 7 Substance use: never Substance use type: does not use Do You Feel Safe in your Home?: Yes Lack of Transportation: No Lack of Food: Never True Current Housing: I Have Housing Concerned About Future Housing: No Difficulty Paying Gas/Electric Bills: No Difficulty Paying for Meds: No Currently Unemployed: No Education: High School Diploma/GED Living arrangements: alone Occupation/Education: occupation Gender identity (if verbalized by the patient): Female Spiritual care concerns: No Exam Narrative: GENERAL: Well-appearing, well-nourished, and in no acute distress. HEAD: Normocephalic, atraumatic. EYES: PERRLA and EOMI. ENT: Nares clear, no rhinorrhea or epistaxis. Mucous membranes moist. NECK: Supple. CHEST: Clear to auscultation. No respiratory distress. HEART: Regular rate and rhythm. No murmur heard. Normal peripheral pulses. ABDOMEN: Soft, nontender, nondistended, normal active bowel sounds. EXTREMITIES: Normal range of motion. No edema. Tenderness palpation in the left clavicle and shoulder area. Full range of motion intact pulses intact sensation SKIN: Warm, dry, no rash. NEURO: No focal deficits. Alert and oriented x3. PSYCH: Normal mood and affect. Course Vital Signs Vital signs: Vital Signs Temperature 36.4 C 01/02/24 21:42 Pulse Rate 66 01/02/24 21:42 Respiratory Rate 20 01/02/24 21:42 Blood Pressure 158/92 H 01/02/24 21:42 Pulse Oximetry 97 01/02/24 21:42 Oxygen Delivery Room Air 01/02/24 21:42 Temperature 36.4 C 01/02/24 21:42 Pulse Rate 64 01/03/24 01:11 Respiratory Rate 18 01/03/24 01:11 Blood Pressure 151/94 H 01/03/24 01:11 Pulse Oximetry 99 01/03/24 01:11 Oxygen Delivery Room Air 01/02/24 21:42 Medical Decision Making MDM Narrative Medical decision making narrative: Differential diagnosis includes shoulder strain, fracture Plain film x-rays were obtained of the shoulder that showed no evidence of fracture Vital Signs Vital Signs: Vital Signs Temperature 36.4 C 01/02/24 21:42 Pulse Rate 66 01/02/24 21:42 Respiratory Rate 20 01/02/24 21:42 Blood Pressure 158/92 H 01/02/24 21:42 Pulse Oximetry 97 01/02/24 21:42 Oxygen Delivery Room Air 01/02/24 21:42 Temperature
== END 2024-01-03 02:03 | disposition home or self-care (01) ==
LOC: ANHED 01-03 01:43
PROVIDERS: Emergency Provider Emergency Medicine
DX: S46.912A Strain of unspecified muscle, fascia and tendon at shoulder and upper arm level, left arm, initial encounter (principal); Z90.710 Acquired absence of both cervix and uterus; X58.XXXA Exposure to other specified factors, initial encounter
CPT/HCPCS: 73030; 99283; A4565